=== PATIENT | male | born 1995 | race Two or more races ===

== ENCOUNTER 2024-12-08 02:54 | Emergency (ER) | payer OTHER ==
[~2024-12-08] VITALS: Ht 182.9 cm; Wt 84.1 kg
[2024-12-08 03:06] VITALS: TEMP 98.5
[2024-12-08 03:10] VITALS: RESP 18; O2SAT 100
--- NOTE | 2024-12-08 03:35 | ED.PDOC ---
Back pain HPI HPI Comments 21-year-old male presents to the ED via ambulance chief complaint lower back pain. 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 States pain started progressively getting worse bringing him to his knees and was unable to walk or hold himself up. Describes pain as very tight to lower mid back 8/10 when sitting 10/10 when standing. Radiates into his left hip. Has taken Tylenol 1000 mg with little relief. He denies numbness, weakness, loss of bowel bladder control, or saddle anesthesia. Chief Complaint: Back Pain Time Seen by MD: 02:59 Reviewed Notes: Nurses Notes, Whiskey Regauger Notes, Medications, Allergies Allergies: Coded Allergies: NO KNOWN ALLERGIES (Unverified , 12/08/24) Information Source: Patient Mode of Arrival: EMS Past Medical History PAST MEDICAL HISTORY: Denies Surgical History: Denies all surgeries Family History Family History: Reviewed,noncontributory to illness Social History Smoker: Non-Smoker Alcohol: Denies ETOH Use Drugs: Denies Drug Use Constitutional: denies: chills, diaphoresis, fatigue, fever, malaise, sweats, weakness, others EENTM: denies: blurred vision, double vision, ear bleeding, ear discharge, ear drainage, ear pain, ear ringing, eye pain, eye redness, hearing loss, mouth pain, mouth swelling, nasal discharge, nose bleeding, nose congestion, nose pain, photophobia, tearing, throat pain, throat swelling, voice changes, others Respiratory: denies: cough, hemoptysis, orthopnea, SOB at rest, shortness of breath, SOB with excertion, stridor, wheezing, others Cardiovascular: denies: chest pain, dizzy spells, diaphoresis, Dyspnea on exertion, edema, irregular heart beat, left arm pain, lightheadedness, pal pitations, PND, syncope, others Gastrointestinal: denies: abdomen distended, abdominal pain, blood streaked bowels, constipated, diarrhea, dysphagia, difficulty swallowing, hematemesis, melena, nausea, poor appetite, poor fluid intake, rectal bleeding, rectal pain, vomiting, others Genitourinary: denies: burning, dysuria, flank pain, frequency, hematuria, incontinence, penile discharge, penile sore, pain, testicle pain, testicle swelling, urgency, others Neurological: denies: dizziness, fainting, headache, left sided numbness, left sided weakness, numbness, paresthesia, pre-existing deficit, right sided numbness, right sided weakness, seizure, speech problems, tingling, tremors, weakness, others Musculoskeletal: reports: back pain; denies: gout, joint pain, joint swelling, muscle pain, muscle stiffness, neck pain, others Integumetry: denies: bruises, change in color, change in hair/nails, dryness, laceration, lesions, lumps, rash, wounds, others Allergic/Immunocompromised: denies: Difficulty Healing, Frequent Infections, Hives, Itching, others Hematologic/Lymphatic: denies: anemia, blood clots, easy bleeding, easy bruising, swollen glands, others Endocrine: denies: excessive hunger, excessive sweating, excessive thirst, excessive urination, flushing, intolerance to cold, intolerance to heat, unexplained weight gain, unexplained weight loss, others Psychiatric: denies: anxiety, bipolar disorder, depression, hopeless, panic disorder, schizophrenia, sleepless, suicidal, others Physical Exam General Appearance: No Apparent Distress, Normal HEENT: Normal ENT Inspection, Pharynx Normal, TMs Normal Neck: Full Range of Motion, Non-Tender, Normal, Normal Inspection Respiratory: Chest Non-Tender, Lungs Clear, No Accessory Muscle Use, No Respiratory Distress, Normal Breath Sounds Cardiovascular: No Edema, No JVD, No Murmur, No Gallop, Normal Peripheral Pulses, Regular Rate/Rhythm Breast Exam: Deferred Gastrointestinal: No Organomegaly, Non Tender, No Pulsatile Mass, Normal Bowel Sounds, Soft Genitalia: Deferred Pelvic: Deferred Rectal: Deferred Extremities: No calf tenderness, Normal capillary refill, Normal inspection, Normal range of motion, Non-tender, No pedal edema Musculoskeletal : Apperance: Normal Neurologic: Alert, child care associate II-XII nml as Tested, No Motor Deficits, Normal Affect, Normal Mood, No Sensory Deficits Cerebellar Function: Normal Reflexes: Normal Skin: Dry, Normal Color, Warm Lymphatic: No Adenopathy Was a procedure done? Was a procedure done?: No Back Pain Differential Dx Differential Diagnosis: Fracture, Musculoskeletal Pain X-Ray, Labs, Meds, VS Vital Signs Date Time Temp Pulse Resp B/P (MAP) Pulse Ox O2 Delivery O2 Flow Rate FiO2 7 03:06 98.5 45 18 118/65 100 98.5 X-Ray, Labs, Meds, VS Comment CT shows no acute fractures or subluxations does show some disc degeneration L4- L5 and L5-S1 with broad-based posterior disc bulges. Likely paraspinal muscle strain. We will script trial of tizanidine and Medrol Dosepak. Advised on ice and heat. Advised to follow up with his PCP and employee health in two days consider further imaging such as MRI if symptoms persist also recommend physical therapy once acute pain has not improved. Advised on ER return precautions for increasing pain, numbness, weakness, loss of bowel bladder control, or saddle anesthesia. Patient indicates understanding and agrees with discharge plan of care. Time of 1ST Reevaluation: 03:10 Reevaluation 1ST: Unchanged Time of 2ND Reevaluation: 04:32 Reevaluation 2ND: Improved Patient Education/Counseling: Diagnosis, Treatment, Prognosis, Need For Follow Up Family Education/Counseling: Diagnosis, Treatment, Prognosis, Need For Follow Up SEPSIS Sepsis Screen Date sepsis recognized/suspect: Dec 08, 2024 Time Sepsis recognized/suspect: 249 Recent Procedure: No On Antibiotic Therapy: No Respiratory Rate >20: No Heart Rate >90: No Temp<36 C (96.8 F) or >38.3 C: No SBP <90 or MAP <65 mmHG: No New Acute Mental Status Change: No Is the patient on CPAP, BIPAP,: No Physician Orders Ls Spine Wo Contrast (12/08/24 03:20) Vital Signs Date Time Temp Pulse Resp B/P (MAP) Pulse Ox O2 Delivery O2 Flow Rate FiO2 12/08/24 03:06 98.5 45 18 118/65 100 98.5 Departure 1 Departure Time of Disposition: 04:31 Impression: Primary Impression: Lumbar sprain Qualified Codes: S33.5XXA - Sprain of ligaments of lumbar spine, initial encounter Disposition: HOME / SELF CARE / HOMELESS Condition: Stable e-Prescriptions Tizanidine Hydrochloride (Tizanidine Hcl) 4 Mg Tab 4 MG PO TID PRN for 7 Days, #21 TAB Prov: HEIDE PICKETT 12/08/24 Methylprednisolone (Medrol Dosepak) 4 Mg Edd 4 MG PO UD for 6 Days, #21 TAB UAD Prov: HEIDE PICKETT [employer] SALES ATTENDANT 7/30/25 Discharged With: Self Critical Care Note Critical Care Time?: No Stability Stability form required: HEIDE Serna [employer] SALES ATTENDANT Dec 08, 2024 03:35
--- NOTE | 2024-12-08 04:23 | DVH ---
CLINICAL INDICATION: S/P INJURY PAIN TECHNIQUE: CT of the lumbar spine was performed without intravenous contrast. Sagittal and coronal re formatted images are provided. All CT scans at this medical facility are performed using dose modula tion techniques as appropriate to a performed exam including the following: Automated exposure contro l was utilized; adjustment of the MA and/or KV according to patient size; and use of iterative recons truction technique. COMPARISON: None CT Dose: CTDI volume is 24.0 mGy. Dose-length product is 827.5 mGy*cm FINDINGS: The alignment and curvature of the lumbar spine are preserved. The vertebral bodies are normal in hei ght. There is intervertebral disc space narrowing at L4-L5 and L5-S1 with broad-based posterior disc bulges. There is no evidence of spinal canal or neural foraminal stenosis. The prevertebral soft tissues are unremarkable. Paraspinal muscles are also within normal limits. IMPRESSION: 1. No acute fracture or subluxation in the lumbar spine. 2. Intervertebral disc degeneration at L4-L5 and L5-S1 with broad-based posterior disc bulges.
[2024-12-08] MEDS ORDERED: METH4PAK PO (04:32)
[2024-12-08] MEDS ORDERED: TIZA-142 PO (04:32)
[2024-12-08 05:00] VITALS: BP 118/65; PULSE 55; RESP 18
[2024-12-08] MEDS: MORPHINE SULFATE INJ 2 MG/ml SYRG IM ONE (05:00)
== END 2024-12-08 05:05 | disposition home or self-care (01) ==
LOC: EDBD 02:54 → ER 02:54
DX: S33.5XXA Sprain of ligaments of lumbar spine, initial encounter (principal); X58.XXXA Exposure to other specified factors, initial encounter; Y93.89 Activity, other specified; Y92.89 Other specified places as the place of occurrence of the external cause; Y99.8 Other external cause status
CPT/HCPCS: 72131; 96372; 99285; J1100; J2270